=== PATIENT | male | born 1960 | race Caucasian/White ===

== ENCOUNTER 2024-07-04 13:31 | Outpatient (CLI) | payer MEDICARE, SELFPAY ==
--- NOTE | ~2024-07-04 | CT_ITS ---
CLINICAL INDICATION: Popliteal artery aneurysm. COMPARISON: None. TECHNIQUE: Computed tomography angiography (CTA) of the abdomen and bilateral lower extremities was p erformed with 150 mL Omnipaque-350 intravenous contrast timed to evaluate the abdominal aorta and low er extremity vasculature. Coronal maximum intensity projection 3D-reconstructions were created by the technologist. The dose-length product (DLP) was 1898.02 mGy-cm. Automated exposure control and itera tive reconstruction technique were employed. FINDINGS/OBSERVATIONS: No filling defect or aneurysmal dilatation within the lower thoracic or abdominal aorta. The celiac axis is patent and demonstrates conventional anatomy. The superior mesenteric artery is also patent, without significant calcified atherosclerotic disease. The inferior mesenteric artery is diminutive, but patent. No aneurysmal dilatation or calcified atherosclerotic disease is identified within the bilateral marlen c vasculature. Limited opacification of the right common femoral, profunda femoral and superficial femoral arteries secondary to bolus timing. Aneurysmal dilatation is appreciated at the level of the right popliteal artery measuring 16 x 16 x 1 9 mm (anterior to posterior x medial to lateral x cranial to caudal dimension). The arterial and veno us vasculature [id number] opacify equally, likely secondary to poor bolus timing. Limited opacification of the left common femoral, profunda femoral and superficial femoral arteries s econdary to bolus timing. Thrombosed aneurysm sac is suspected within the left popliteal artery. The opacified lumen of the left popliteal artery measures 8.3 x 9.8 mm. The unopacified aneurysm sac measures 24 x 24 mm. Evaluation of the vasculature below the knee is limited secondary to poor bolus timing. IMPRESSION: The aneurysm sac of the left popliteal artery is unopacified suggesting thrombosis. Aneurysmal dilatation at the level of the right popliteal artery measuring 19 mm in greatest dimensio n. Serial follow-up with Doppler ultrasound is suggested. Reviewed, dictated and finalized at location A. IMPRESSION: The aneurysm sac of the left popliteal artery is unopacified suggesting thrombo sis. Aneurysmal dilatation at the level of the right popliteal artery measuring 19 m m in greatest dimension. Serial follow-up with Doppler ultrasound is suggested.
[2024-07-04 14:30] LABS: Estimated Glomerular Filt Rate > 60
--- OUTSIDE RECORDS SUMMARY | 2024-07-04 14:53 | XMS_ITS | Continuity of Care Document ---
Author Organization [facility] Address [address] [place] [address] Phone Care Team Providers Care Analog Circuit Designer Name Role Phone AnetteChandu hailea Unavailable Unavailable Medications Medication Instructions Dosage Effective Dates (start - stop) Status Comments ibuprofen 600 mg tablet take 1 tablet by oral route every 6 hours as needed with food 600 MG - Active ibuprofen 600 mg tablet take 1 tablet by oral route every 6 hours as needed with food 600 MG - Active lisinopril 10 mg tablet take 1 tablet by oral route every day 10 MG - Active Procedures Procedure Date PRDNTL SCAL&ROOT PLAN 4 TEETH-QUAD PRDNTL SCAL&ROOT PLAN 4 TEETH-QUAD ORAL HYGIENE INSTRUCTIONS Chart Approval Dental Consultation ORAL HYGIENE INSTRUCTIONS Chart Approval Dental Consultation ORAL HYGIENE INSTRUCTIONS Dental Consultation SUTURE REMOVAL INTRAORAL PERIAPICAL FIRST FILM 014 Chart Approval ORAL HYGIENE INSTRUCTIONS RESIN COMPOS - 3 SURFACES POSTERIOR Chart Approval EXTRAC ERUPTED TOOTH EXPOSED ROOT ORAL HYGIENE INSTRUCTIONS Chart Approval INTRAORAL-COMPLETE SERIES INITIAL ORAL EXAM ORAL HYGIENE INSTRUCTIONS NUTRIT CNSL CONTROL DENTAL DISEASE Chart Approval EXTRAC ERUPTED TOOTH EXPOSED ROOT ORAL HYGIENE INSTRUCTIONS Chart Approval New Dental Client LIMITED ORAL EXAM, PROBLEM FOCUSED INTRAORAL PERIAPICAL FIRST FILM 013 ORAL HYGIENE INSTRUCTIONS Chart Approval New Dental Client Advance Directives Directive Yes / No Effective Date File Name No Information Encounters Encounter Description Practice Location Reason(s) For Visit Diagnoses Date Provider Providers Copied on Encounter [facility], [address] [place] [address], [id number], tel:[phone] Will [facility] Dental Dental examination Emily Jensen. [address] [place] [address], [id number]. tel:[phone] Referring Provider: Marce Brooke, [address] [place] [address], [id number]. tel:[phone] [facility], [address] [place] [address], [id number], tel:[phone] Will [facility] Dental Dental examination Adalberto Zheng. [address] [place] [address], [id number]. tel:[phone] [facility], [address] [place] [address], [id number], [place] tel:[phone] Will [facility] Dental Dental examination Adalberto Zheng. [address] [place] [address], [id number]. tel:[phone] [facility], [address] [place] [address], [id number], [place] tel:[phone] Will [facility] Dental Dental examination Adalberto Zheng. [address] [place] [address], [id number]. tel:[phone] [facility], [address] [place] [address], [id number], [place] tel:[phone] Will [facility] Dental Dental examination Adalberto Zheng. [address] [place] [address], [id number]. tel:[phone] [facility], [address] [place] [address], [id number], tel:[phone] Will [facility] Dental Dental examination Adalberto Zheng. [address] [place] [address], [id number]. tel:[phone] [facility], [address] [place] [address], [id number], tel:[phone] Will [facility] Dental Dental examination Adalberto Zheng. [address] [place] [address], [id number]. tel:[phone] [facility], [address] [place] [address], [id number], tel:[phone] Will [facility] Dental Dental examination Adalberto Zheng. [address] [place] [address], [id number]. tel:[phone] Family History Family Member Type Diagnosis Age At Onset No Information Payers Payer name Insurance type Covered constitution party ID Authoriza tiyun(s) No Information Social History Type Description Quantity Date Captured Comments Sex Male Smoking Status No Information Chief Complaint And Reason For Visit No Information Reason For Referral Reason For Referral No Information History Of Present Illness Encounter Date Complaint History Of Prese nt Illness No Information Functional Status Date Functional Assessmen t No Information Instructions Date Instruction Additional Infor mation No Information Assessments Type Assessment Date No Information Patient Care Teams Name Effective Dates (start - stop) Status Members No Information
--- OUTSIDE RECORDS SUMMARY | 2024-07-04 14:53 | XMS_ITS | Data Portability ---
Author Organization [facility], [employer] Address [address] [place] [address] Assessment Encounter Date Assessment Date Assessment LastModified by Organization Details LastModified Time 07/09/2015 07/09/2015 Pt is a 54 yo male with chronic hidradenitis who presented to PCPs office today with spontaneously draining infected area. Referred to surgery clinic for incision and drainage. I&D done in office with local anesthetic. Local wound care, Sitz baths, antibiotics given by PCP. Follow up in clinic in 2 weeks for wound check. [email or web address] Not available 07/09/2015 16:18:29 07/22/2015 07/22/2015 55 yo male here for follow-up after left groin I+D for hidradenitis. The wound is healing well and should close in the coming weeks. he is almost done with his antibiotics. Plan for PRN follow-up. [email or web address] Not available 07/22/2015 14:21:02 Plan of Treatment Reminders Order Date Submit Date Provider Last Modified By Organization Details Last Modified Time Details Appointments None record ed. Lab None record ed. Referral None record ed. Procedures None record ed. Surgeries None record ed. Imaging None record ed. Medication Orders None record ed. Patient TargetsNo targets recorded. Patient InstructionsNo instructions recorded. Reason for Referral None Reported. Results Created Date Observation Date Name Description Value Unit Range Abnormal Flag Note LastModifiedBy Organization Detail LastModifiedTime Result Notes None recorded. Problems Name Problem SNOMED Code Status Onset Date Resolution Date Notes Provider Name and Address Organization Details Recorded Time Abscess of groin 65406350 Active Ann groves [facility] 07/22/2015 12:54:59 Problem Notes None recorded. Procedures Surgical History Date Name Laterality Status Provider Name and Address Organization Details Recorded Time 6 I+D abscess completed Hamida Vega [facility] 07/09/2015 16:18:30 Imaging Results None recorded. Procedure Notes None recorded. Medical Equipment None Reported. Allergies No known drug allergies Medications Name Sig Start Date Stop Date Status Note LastModified by Organization Details LastModified Time atorvastatin 20 mg tablet active Not Available Not Available Not Available lisinopril 30 mg tablet active Not Available Not Available Not Available allopurinol 300 mg tablet active Not Available Not Available Not Available metoprolol succinate ER 25 mg tablet,extended release 24 hr active Not Available Not Availabl e Not Available amoxicillin 875 mg-potassium clavulanate 125 mg tablet active Not Available Not Available Not Available fenofibrate nanocrystallized 48 mg tablet active Not Available Not Available Not Available Vitals Date Recorded Body mass index (BMI) Body weight Heart rate Body height Systolic blood pressure Diastolic blood pressure Provider Name and Address Organization Details Last Updated DateTime 6 41.8 kg/m2 644188. 93858 g 90 /min 175.26 cm 150 mm[Hg] 92 mm[Hg] [facility] 6 16:16:39 Date Recorded Body height Body mass index (BMI) Heart rate Body weight Systolic blood pressure Diastolic blood pressure Provider Name and Address Organization Details Last Updated DateTime 6 175.26 cm 41 kg/m2 106 /min 801753. 185878 g 146 mm[Hg] 102 mm[Hg] [facility] 6 12:54:59 Social History Question Answer Notes LastModified by Organizat ion Details LastModified Time Tobacco Smoking Status Never Smoker Not Available [facility] 01/18/2020 03:13:29 How Much Tobacco Do You Smoke? No [id number] Information not available 01/18/2020 Sex: Unknown Functional Status None recorded. Mental Status None recorded. Family History Nothing Reported. Medical History Condition Response Coronary Artery Disease N Other N Gout N Thyroid Disease N Prostate Disease N Bleeding Disorders N Blood disorders N Bowl Obstruction N Urinary Incontinence N Depression N COPD N Anorexia N Anemia N Colon Polyps N Deep Vein Thrombosis N Kidney disease N Anxiety Disorder N Diabetes N Arthritis N Seizure N History of Heart Attack N Pain N Cancer N Stroke N Diverticulitis N Asthma N Morbid Obesity N HIV/AIDS N Fecal Incontinence N Sleep Apnea N GERD/Reflux N High Cholesterol N Hepatitis N Liver Disease N Pulmonay disease N Heart Disease N Pulmonary Embolism N PCOS N Hypertension Y Past Encounters Encounter ID Performer Location Encounter Start Date Encounter Closed Date Diagnosis/Indication Diagnosis SNOMED-CT Code Diagnosis ICD10 Code Diagnosis Note [id number] Shara Crespo [facility] [address] [place] [address] 07/09/2015 15:23:37 07/14/2015 10:55:56 [id number] Brittany [facility] [address] [facility] [address] [place] [address] 07/22/2015 12:41:38 07/25/2015 12:54:53 Health Concerns Section Related Observation LastModified by Organization Detai ls LastModified Time None Recorded Concern Status LastModified by Organization Details LastModified Time None Recorded Advance Directives Directive None Recorded Payers Encounter Date Sequence Insurance Name Policy Number Policy Chavez Covered Member ID Chavez Member ID Guarantor Name 07/22/2015 1 [place] Gurwinder Hoff [id number] Gurwinder Hoff Notes Date Note Type Note Provider Name and Address Organization Details Recorded Time 07/09/2015 text/html Pt is a 54 yo ma le who was sent to clinic for evaluation of groin tenderness and purulent drainage. Per patient he has had this problem in the past in the same area and diagnosed with hidradenitis in his axilla and groin. He first noticed that this area got worse about 2-3 days ago and got worse today/yesterday. First noticed spontaneous drainage last night. No fever, chills, SOB, CP. Shara Crespo [facility] 07/16/2015 18:16:10 07/22/2015 text/html Here for follow- up after I+D of the left groin hidradenitis. He has minimal pain now and there is not much drainage. He is feeling well otherwise. Jc Morejon MD [address], [place], [address], [facility] 07/22/2015 14:21:15
--- OUTSIDE RECORDS SUMMARY | 2024-07-04 14:53 | XMS_ITS | Clinical Summary ---
Author Organization Hamida lewis Address [address] [place] [address] Care Team Providers Care Entry Driver Operator Name Role Phone Unavailable Primary Care Provider Unavailabl e Allergies No known active allergies Medications lisinopril (PRINIVIL) 10 mg tablet Take 10 mg by mouth daily. Active allopurinoL (ZYLOPRIM) 300 mg tablet Take 300 mg by mouth daily. Active fenofibrate micronized (LOFIBRA) 134 mg Capsule Take 134 mg by mouth daily. Active cetirizine (ZyrTEC) 10 mg tabletIndication s:Acute frontal sinusitis, recurrence not specified Take 1 Tablet (10 mg) by mouth daily. 30 Tablet 1 12/21/2018 Active Active Problems Problem Noted Date Diagnosed Date Tobacco use Family History Relation Name Status Comments Father Mother Social History Tobacco Use Types Packs/Day Years Used Date Smoking Tobacco: Every Day Cigarettes Smokeless Tobacco: Never Tobacco Cessation:Ready to Q uit: No; Counseling Given: Yes Alcohol Use Standard Drinks/Week Comments Yes 0 (1 standard drink = 0.6 oz pur e alcohol) Sex and Gender Information Value Date Recorded Sex Assigned at Not on file Legal Sex Male 9:45 AM CDT Gender Identity Not on file Sexual Orientation Not on file Last Filed Vital Signs Vital Sign Reading Time Taken Comments Blood Pressure 128/84 12/21/2018 9:58 AM CDT Pulse 91 12/21/2018 9:58 AM CDT Temperature 36.2 C (97.2 F) 12/21/2018 9:58 AM CDT Respiratory Rate - - Oxygen Saturation 96% 12/21/2018 9:58 AM CDT Inhaled Oxygen Concentration - - Weight 132.9 kg (293 lb) 12/21/2018 9:58 AM CDT Height 198.1 cm (6' 6 ) 12/21/2018 9:58 AM CDT Body Mass Index 33.86 12/21/2018 9:58 AM CDT Plan of Treatment Health Maintenance Due Date Last Done Comments Pre-Diabetes and Diabetes Screening 1960 DTAP/TDAP/TD VACCINES (1 - Tdap) 1981 COLORECTAL SCREENING 07/16/2007 Colorectal Cancer Screening 07/16/2007 FIT-DNA Q 3 years 07/16/2007 FIT/FOBT Q 1 year 07/16/2007 Flex Sig/CT Colonography Q 5 years 07/16/2007 ZOSTER VACCINE (1 of 2) 2012 INFLUENZA VACCINE (#1) 2023 12/21/2018, 2018 RSV VACCINE (60+ or ) (1 - 1-dose 75+ series) 2037 Insurance MCR
--- OUTSIDE RECORDS SUMMARY | 2024-07-04 14:53 | XMS_ITS | CONTINUITY OF CARE DOCUMENT ---
Author Name kirit beth Address Unknown Organization [facility] Address [address] [place] [address] Phone [phone] Care Team Providers Care Fire Engine Operator Name Role Phone Mello Garcia MD Unavailable SERVANDO GUAMAN MD Unavailable [phone] SERVANDO GUAMAN MD Unavailable [phone] INSURANCE PROVIDERS Payer name Policy type / Coverage type [place] red libertarian ID [id number] CHRONIC COMPLETE ASSURE (PPO C-SNP) Medicare [id number]
--- OUTSIDE RECORDS SUMMARY | 2024-07-04 14:54 | XMS_ITS | Clinical Summary ---
Author Organization [facility] Address [address] [place] [address] Care Team Providers Care Fat Purification Worker Name Role Phone Unavailable Primary Care Provider Unavailabl e Source Comments [facility],non-owned Affiliates and Associated Physician Practices is amultiple site organization consisting of ambulatory clinics and hospital sitesin [place], [place], [place] and [place]. This disclosure is being madepursuant to the Care Everywhere program and may not contain all informatio navailable regarding this patient. Last updated 17.[facility] [employer] Allergies No known active allergies Medications Be aware that medications may not be up to date on this document. Always verify current medications with the patient. No known medications Active Problems No known active problems Social History Tobacco Use Types Packs/Day Years Used Date Smoking Tobacco: Every Day Cigarettes Smokeless Tobacco: Never Tobacco Cessation:Ready to Q uit: Yes; Counseling Given: Yes Alcohol Use Standard Drinks/Week Comments Yes 0 (1 standard drink = 0.6 oz pur e alcohol) Sex and Gender Information Value Date Recorded Sex Assigned at Not on file Gender Identity Not on file Sexual Orientation Not on file Last Filed Vital Signs Vital Sign Reading Time Taken Comments Blood Pressure - - Pulse - - Temperature - - Respiratory Rate - - Oxygen Saturation - - Inhaled Oxygen Concentration - - Weight 126.1 kg (278 lb) 11/14/2020 1:25 PM CDT Height 198.1 cm (6' 6 ) 11/14/2020 1:25 PM CDT Body Mass Index 32.13 11/14/2020 1:25 PM CDT Plan of Treatment Health Maintenance Due Date Last Done Comments KENDRICK (AGES 45-75) - COL ON CA SCREENING 1960 COLON MONITORING 1962 COLONOSCOPY - COLON CA SCREENING 1962 CT COLONOGRAPHY - COLON CA SCREENING 1962 Colorectal Cancer Screening 1962 FIT - COLON CA SCREENING 1962 FLEX SIG - COLON CA SCREENING 1962 LIPID TESTING 1962 HIV SCREENING 1977 HEPATITIS C SCREENING 07/10/1980 DTAP/TDAP/TD VACCINES (1 - Tdap) 1981 PNEUMOCOCCAL VACCINE (1 of 2 - PCV) 1981 PNEUMOCOCCAL VACCINE 50+ (1 of 1 - PCV) 2012 ZOSTER VACCINE (1 of 2) 2012 SCREENING FOR DIABETES 11/14/2020 COVID-19 VACCINE (1 - 2023-2 5 season) 2023 INFLUENZA VACCINE (#1) 2023 DEPRESSION SCREENING 04/04/2024 MEDICARE AWV CALENDAR YEAR 2024 Respiratory Syncytial Virus (RSV) Vaccine Pt: or over 60 yrs (1 - 1-dose 75+ series) 2037 HEPATITIS B VACCINE Aged Out No longe r eligible based on patient's age to complete this topic HIB VACCINE Aged Out No longer eligi ble based on patient's age to complete this topic HPV VACCINE Aged Out No longer eligi ble based on patient's age to complete this topic MENINGOCOCCAL (Group B) VACC INE SHARED DECISION-MAKING Aged Out No longer eligibl e based on patient's age to complete this topic MENINGOCOCCAL GROUPS A/C/Y/W VACCINE Aged Out No longer eligible b ased on patient's age to complete this topic Goals Goal Patient Goal Type Associated Problems Recent Progress Patient-Stated? Author Mobility General No Gabriella Barreto, RN Note: Expected end date: 04/03/2021 The goal is to maintain or improve your mobility at the optimum level for you. Interventions: RACHID HOFF Personal/Family 1960 [address] [place] [address]
--- OUTSIDE RECORDS SUMMARY | 2024-07-04 14:54 | XMS_ITS | Clinical Summary ---
Author Organization [facility] Address [address] [place] [address] Phone Care Team Providers Care Pearl Stringer Name Role Phone Desire Sainz MD Primary Care Provider + Medications allopurinol (ZYLOPRIM) 300 MG Tablet daily. Active fenofibrate (TRICOR) 48 MG Tablet daily. Active lisinopril (PRINIVIL, ZESTRIL) 10 MG Tablet Take 10 mg by mouth daily. Active metoprolol Succinate (TOPROL-XL) 25 MG TABLET SR 24 HR daily. Active aspirin 81 MG Chewable Tablet Take 1 Tablet by mouth daily. 04/06/2024 Active acetaminophen (TYLENOL) 325 MG Tablet Take 2 Tablets by mouth every 4 hours as needed for Mild or more severe pain. 04/06/2024 Active atorvastatin (LIPITOR) 40 MG Tablet Take 1 Tablet by mouth nightly. 90 Tablet 04/06/2024 Active Active Problems Problem Noted Date Diagnosed Date Acute brainstem (right pontine) stroke 4 Assessment & Plan (04/06/2024 7:12 AM INFECTIOUS WASTE TECHNICIAN): DAPT & statin IPR denied by insurance Home health pending Assessment & Plan (04/05/2024 10:55 AM INFECTIOUS WASTE TECHNICIAN): DAPT & statin IPR denied by insurance Home health pending Assessment & Plan (04/04/2024 12:35 PM INFECTIOUS WASTE TECHNICIAN): DAPT & statin IPR denied by insurance Assessment & Plan (04/03/2024 2:04 PM INFECTIOUS WASTE TECHNICIAN): DAPT & statin IPR pending Facial droop due to acute stroke 03/27/2024 Hemiparesis of left nondominant side 03/27/2024 Dysarthria due to acute stroke 03/27/2024 Primary hypertension 03/27/2024 Assessment & Plan (04/06/2024 7:12 AM INFECTIOUS WASTE TECHNICIAN): Permissive BP for now Assessment & Plan (04/05/2024 8:17 AM INFECTIOUS WASTE TECHNICIAN): Permissive BP for now Assessment & Plan (04/04/2024 12:35 PM INFECTIOUS WASTE TECHNICIAN): Permissive BP for now Assessment & Plan (04/03/2024 2:04 PM INFECTIOUS WASTE TECHNICIAN): Permissive BP for now Hyperlipidemia LDL goal <70 03/27/2024 Amphetamine use disorder, mild 03/27/2024 Assessment & Plan (04/06/2024 7:12 AM INFECTIOUS WASTE TECHNICIAN): Monitoring for withdrawal Assessment & Plan (04/05/2024 8:17 AM INFECTIOUS WASTE TECHNICIAN): Monitoring for withdrawal Assessment & Plan (04/04/2024 12:35 PM INFECTIOUS WASTE TECHNICIAN): Monitoring for withdrawal Assessment & Plan (04/03/2024 2:04 PM INFECTIOUS WASTE TECHNICIAN): Monitoring for withdrawal Encounters Date Type Department Care Team Description 05/15/2024 2:00 PM INFECTIOUS WASTE TECHNICIAN Telemedicine [facility] - Neurology - [place] Dylan Severino [address] [place] [address] Desire Sainz MD Kappes, Puja Francois, [facility] Other sequelae of cerebral infarction, left sided weakness (Primary Dx); Hyperlipidemia LDL goal <70; Hypertension goal BP (blood pressure) < 130/80; Smoker; Fatigue as sequela of cerebrovascular accident (CVA); Obesity (BMI 30-39.9) Discharge Disposition: Discharged to home or Selfcare 05/15/2024 Travel 04/15/2024 Travel 04/12/2024 8:00 AM INFECTIOUS WASTE TECHNICIAN Home Care Visit [address] [address] Maryellen Parekh, PT HOME HEALTH NON-ADMIT 04/11/2024 Home Care Visit [address] [address] Maryellen Parekh, PT TELEPHONE ENCOUNTER 04/10/2024 Home Care Visit [address] [address] Margaret Martinez, AIR DEFENSE CONTROL OFFICER-SPEECH LANGUAGE PATHOLOGIST TELEPHONE ENCOUNTER 04/09/2024 Telephone [facility] [place] - Neurology - [facility] [address] [place] [address] Puja Patel, PAC Care Management 04/09/2024 Home Care Visit [address] [address] Demetria Alan, RN TELEPHONE ENCOUNTER 04/06/2024 Home Care Visit [address] [address] Demetria Alan, RN TELEPHONE ENCOUNTER 03/27/2024 4:27 PM INFECTIOUS WASTE TECHNICIAN - 04/06/2024 11:02 AM INFECTIOUS WASTE TECHNICIAN [facility] [address] [place] [address] Jacques Diaz MD Upp, MD Rajeev Talkedward, MD Karis Goldsmith, Augie Ramirez MD Acute brainstem stroke (HCC) Discharge Disposition: Home Health Care Svc from Last 3 Months Social History Tobacco Use Types Packs/Day Years Used Date Smoking Tobacco: Former Cigarettes Smokeless Tobacco: Never Alcohol Use Standard Drinks/Week Comments Yes 0 (1 standard drink = 0.6 oz pur e alcohol) social AHC Utilities Answer Date Recorded In the past 12 months has [employer], [employer], oil, or water [employer] threatened to shut off services in your home? No 03/27/2024 Hunger Vital Sign Answer Date Recorded Within the past 12 months, y ou worried that your food would run out before you got the money to buy more. Never true 03/27/20 24 Within the past 12 months, t he food you bought just didn't last and you didn't have money to get more. Never true 03/27/2024 PRAPARE - Transportation Answer Date Re corded In the past 12 months, has l ack of transportation kept you from medical appointments or from getting medications? Yes 03/05 In the past 12 months, has l ack of transportation kept you from meetings, work, or from getting things needed for daily living? Yes 03/27/2024 Housing Stability Vital Sign Answer Burt e Recorded In the last 12 months, was t here a time when you were not able to pay the mortgage or rent on time? No 03/27/2024 In the past 12 months, how m any times have you moved where you were living? 0 03/27/2024 At any time in the past 12 m [facility], were you homeless or living in a snf (including now)? No 03/27/2024 Sex and Gender Information Value Date Recorded Sex Assigned at Not on file Legal Sex Male 1:20 PM INFECTIOUS WASTE TECHNICIAN Gender Identity Not on file Sexual Orientation Not on file Last Filed Vital Signs Vital Sign Reading Time Taken Comments Blood Pressure 158/87 04/06/2024 4:32 AM INFECTIOUS WASTE TECHNICIAN Pulse 81 04/06/2024 4:32 AM INFECTIOUS WASTE TECHNICIAN Temperature 36.3 C (97.3 F) 04/06/2024 4:32 AM INFECTIOUS WASTE TECHNICIAN Respiratory Rate 18 04/06/2024 4:32 AM INFECTIOUS WASTE TECHNICIAN Oxygen Saturation 93% 04/06/2024 4:32 AM INFECTIOUS WASTE TECHNICIAN Inhaled Oxygen Concentration - - Weight 123.8 kg (273 lb) 05/15/2024 2:13 PM INFECTIOUS WASTE TECHNICIAN Height 195.6 cm (6' 5 ) 03/28/2024 2:32 PM INFECTIOUS WASTE TECHNICIAN Body Mass Index 32.37 03/28/2024 2:32 PM INFECTIOUS WASTE TECHNICIAN Plan of Treatment Health Maintenance Due Date Last Done Comments TdaP Immunization 1962 Colonoscopy 07/16/2007 Colorectal Cancer Screening 07/16/2007 Cologuard 2012 Immunochemical Fecal Occult Blood 2012 Pneumococcal Immunization (5 0+ years) (1 of 1 - PCV) 2012 Zoster Immunization (1 of 2) 2012 PSA Discussion 2017 Influenza Immunization (#1) 2023 SARS-COV-2 Immunization (1 - season) 2023 Respiratory Syncytial Virus (RSV) Immunization (Adult) (1 - 1-dose 75+ series) 2037 Hepatitis C Virus (HCV) Screening Completed 016 Hepatitis B Immunization Aged Out No longer eligible based on patient's age to complete this topic Meningococcal Immunization (ACWY) Aged Out No longer eligible based on patient's age to complete this topic Rotavirus Immunization Aged Out No lo nger eligible based on patient's age to complete this topic Insurance [address] [place] [address] [facility] MEDICARE C [facility] Advance Directives * Full Code (Latest Code Status on File) Date Activated Date Inactivated Comments 03/27/2024 6:42 PM CPR-Full Yvonne tment: FULL ARREST: Attempt Resuscitation/CPR wit intubation and mechanical ventilation. PRE-ARREST: Use entire range of life support measures to stabilize the patient. Care Teams Pearl Stringer Relationship Specialty [place] [address] [place] [address] PCP - General Family Medicine 04/05/24
--- OUTSIDE RECORDS SUMMARY | 2024-07-04 14:54 | XMS_ITS | Data Portability ---
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 Presenting with bilateral lower extremity pain at rest. Symptoms can be due to venous and arterial in origin given medical history increasing the risk for arterial disease (smoker, hypertension) and lower extremity edema despite the use of compression therapy over the past 2 years. My recommendation is lower extremity arterial and venous ultrasound for further evaluation. I will discuss with him the results of his ultrasounds at his follow up visit. I spent a total of 45 minutes with the patient. The time was spent reviewing the chart ,discussing with patient and/or family and forming a treatment plan. Not available 05/28/2024 23:34:46 06/06/2024 06/06/2024 63 y/o male with history of dyslipidemia, hypertension, and CVA with lower extremity pain (left calf to the foot and right foot) presenting for lower extremity arterial and venous ultrasounds. 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 Monophasic waveforms were seen to the left lower extremity from the popliteal artery distally to the dorsalis pedis artery. Left popliteal aneurysm measured 2.34 cm. Right anterior tibial/posterior tibial and dorsalis pedis arteries were monophasic. Venous reflux ultrasound demonstrated venous reflux to the right saphenofemoral junction and GSV. I suspect his pain is due to arterial disease and popliteal aneurysm. A CTA has been ordered for him to complete for further evaluation of the left popliteal aneurysm. My recommendation is lower extremity angiogram with possible intervention after he has completed the CTA. The risks, benefits, and alternatives were discussed with the patient. The patient states they understand and wish to proceed. Treatment planning is underway. I spent a total of 45 minutes with the patient. The time was spent reviewing the chart ,discussing with patient and/or family and forming a treatment plan. Not available 06/10/2024 22:52:17 Plan of Treatment Reminders Order Date Submit Date Provider Last Modified By Organization Details Last Modified Time Details Appointments AIF 2024 09:00A M Dr. Snow Not available Not available Not available Lab CMP, serum or plasma 2024 025 Not available 07/04/2024 14:19:37 CBC 2024 025 [email or web address] Not available 07/04/2024 14:19:37 HbA1c (hemoglo bin A1c), blood 2024 025 [email or web address] Not available 07/04/2024 14:19:37 PT/INR 2024 025 [email or web address] Not available 07/04/2024 14:19:37 Referral None recorded . Procedures None recorded . Surgeries None recorded . Imaging CT, angiogra m, abdomen + pelvis + lower extremit y, w/wo contrast - further eval for left poplitea l aneurysm . ultrasou nd displaye d 2.4 cmPlease mail copy of CD images to clinic 2024 025 [facility] (Radiology), [address] [place], [address], 06/13/2024 04:02:56 Medication Orders None recorded . Patient TargetsNo targets recorded. Patient InstructionsNo instructions recorded. Reason for Referral None Reported. Results Created Date Observation Date Name Description Value Unit Range Abnormal Flag Note LastModifiedBy Organization Detail LastModifiedTime 06/07/19 25 US, odessale x, venou s, lower extre mity, limit ed No observ ation record ed. [email or web address] Not Available 2024 08:53:03 06/07/19 25 06/06/2024 US, doppl er, arter ial No observ ation record ed. [email or web address] Not Available 2024 08:56:44 Result Notes None recorded. Problems Name Problem SNOMED Code Status Onset Date Resolution Date Notes Provider Name and Address Organization Details Recorded Time Peripheral vascular disease 843670503 Active 2024 Not Available [facility] 11:01:08 Complicati on due to diabetes mellitus 82682967 Active 2024 Alice groves [employer] - [facility] and 15:01:15 Bilateral lower limb pain at rest due to atheroscle rosis 3911101408412 9103 Active 2024 Alice groves [place] - [facility] and 20:30:15 Edema of lower extremity 290249277 Active 2024 Alice gro[place], [place] - [facility] and 20:30:22 Problem Notes None recorded. Procedures Surgical History Date Name Laterality Status Provider Name and Address Organization Details Recorded Time 06/07/19 25 OALEArterialUS1 completed Alice MADRIGAL - [facility] and 06/07/2024 20:30:02 06/07/19 25 OALEVenousUSreflux completed Alice [facility] and 06/07/2024 20:30:03 Imaging Results Imaging Date Name Status LastModified by Organiz ation Details LastModified Time 06/06/2024 US, duplex, venous, lower extremity, limited completed Information not available 06/07/2024 08:53:03 06/06/2024 US, doppler, arterial completed Information not available 06/07/2024 08:56:44 Procedure Notes None recorded. Medical Equipment None Reported. Allergies No known drug allergies Medications Name Sig Start Date Stop Date Status Note LastModified by Organization Details LastModified Time atorvastatin 40 mg tablet TAKE 1 TABLET BY MOUTH EVERY NIGHT active Not Available Not Available No t Available Zyrtec 10 mg tablet Take 1 tablet every day by oral route. active Not Available Not Available No t Available fenofibrate micronized 134 mg capsule Take 1 capsule every day by oral route. active Not Available Not Available No t Available lisinopril 10 mg tablet Take 1 tablet every day by oral route. active Not Available Not Available No t Available allopurinol 300 mg tablet Take 1 tablet every day by oral route. active Not Available Not Available No t Available aspirin 81 mg capsule Take 1 capsule every day by oral route. active Not Available Not Available No t Available Vitals Date Recorded Body height Body mass index (BMI) Body weight Heart rate Systolic blood pressure Diastolic blood pressure Provider Name and Address Organization Details Last Updated DateTime 195.58 cm 32.6 kg/m2 889022. 9 g 91 /min 162 mm[Hg] 111 mm[Hg] solomon harley [facility] and 13:12:52 Social History Question Answer Notes LastModified by Organizat ion Details LastModified Time Tobacco Smoking Status Current Some Day Smoker solomon groves, [facility] and 05/28/2024 12:56:44 What Is Your Level Of Alcohol Consumption? Occasional [email or web address] Information not available 05/28/2024 What Is Your Level Of Caffeine Consumption? Moderate Information not available 07/02/2024 Which Illicit Or Recreational Drugs Have You Used? Marijuana Information not available 07/02/2024 What Is Your Occupation? Disabled [email or web address] Information not available 05/28/2024 What Was The Date Of Your Most Recent Tobacco Screening? 05/28/2024 [email or web address] Information not available 05/28/2024 How Much Tobacco Do You Smoke? 0.25 PPD Information not available 05/28/2024 Do You Use Any Illicit Or Recreational Drugs? Yes Information not available 07/02/2024 How Many Years Have You Smoked Tobacco? 25 [email or web address] Information not available 05/28/2024 Do You Or Have You Ever Used Any Other Forms Of Tobacco Or Nicotine? No Information not available 07/02/2024 Sex: Unknown Functional Status None recorded. Mental Status None recorded. Family History Relationship Description Onset Age of this Age Resolved Age Notes LastModified by Organization Details LastModified Time Mother Diabetes mellitus pt. added direct ly (05/26) [email or web address] Not available 05/26/2024 18:53:02 Father Diabetes mellitus pt. added direct ly (05/26) [email or web address] Not available 05/26/2024 18:53:02 Medical History Condition Response Hyperlipidemia Y Stroke Y Hypertension Y Past Encounters Encounter ID Performer Location Encounter Start Date Encounter Closed Date Diagnosis/Indication Diagnosis SNOMED-CT Code Diagnosis ICD10 Code Diagnosis Note [id number] KENNEY DAILY, [employer] [place] [address] [address] [facility], [facility] [address] [address] 05/28/2024 12:17:56 05/29/2024 18:19:41 Edema of lower extremity 810728946 R60.0 Bilateral lower limb pain at rest due to atherosclerosis 9022375722 4444056 I70.223 [id number] KENNEY DAILY, [employer] [place] [address] [facility], [facility] [address] [address] 06/06/2024 12:21:30 06/11/2024 17:02:21 Aneurysm of left popliteal artery 1908880630 4378468 I72.4 Bilateral lower limb pain at rest due to atherosclerosis 8554511726 9055334 I70.223 Pre-surgery testing 1104 [address]150 Z01.812 Edema of l ower extremity 633747533 R60.0 34[address] Alice Veronica [place] [address] [address] [address] [facility] ,[address] [address] 06/06/2024 12:21:55 06/07/2024 21:00:37 Bilateral lower limb pain at rest due to atherosclerosis 2882840468 7916315 I70.223 Edema of l ower extremity 152779495 R60.0 Health Concerns Section Related Observation LastModified by Organization Detai ls LastModified Time None Recorded Concern Status LastModified by Organization Details LastModified Time None Recorded Advance Directives Directive None Recorded Payers Encounter Date Sequence Insurance Name Policy Number Policy Chavez Covered Member ID Chavez Member ID Guarantor Name 05/28/2024 1 [facility] (MEDICARE REPLACEMENT/A DVANTAGE - PPO) [id number] Gurwinder Mccoylo [id number] Gurwinder Luis Eduardo 06/06/2024 1 [facility] (MEDICARE REPLACEMENT/A DVANTAGE - PPO) [id number] Gurwinder Mccoylo [id number] Gurwinder Mccoylo 06/06/2024 1 [facility] (MEDICARE REPLACEMENT/A DVANTAGE - PPO) [id number] Gurwinder Luis Eduardo [id number] Gurwinder Luis Eduardo Notes Date Note Type Note Provider Name and Address Organization Details Recorded Time 5 text/html OA Arterial Occlusive Disease: Lower ExtremityReported bypatient.Location:[facility] (Right worse than left) Quality:cramping; burning; aching; weakness Severity:moderate Onset/Timing:with exercise begins at 1 block; wakes from sleep Context:tobacco use; current smoker Alleviating Factors:rest Aggravating Factors:walking; standing Associated Symptoms:weakness;numbness /tinglingVaricose Vein or Venous insufficiencyReported bypatient.Location:[facility] (right worse than left) Quality:aching;burning; legs do not swell equally (right leg swells more) Associated Symptoms:numbness;tingling ;swelling;itching;heavines s;throbbing;character: cramping Severity:moderate Onset:2 years Context:compression stockings (for how long?) He has worn knee high compressions for 2 years. Alleviating Factors:elevation; rest Aggravating Factors:prolonged standing sleepsleep disturbances: insomnia: difficulty falling asleep: because of pain KENNEY HAYES, SABINO [address], [address], [facility] and 05/28/2024 23:36:03 5 text/html He is presenting for lower extremity arterial and venous ultrasounds. He complains of lower extremity pain on the left from the calf to the foot and to the right foot. He continues to have lower extremity edema. KENNEY HAYES, SABINO [address] [facility], [address], [address], [facility] and 06/10/2024 22:52:54
== END 2024-07-04 13:32 | disposition home or self-care (01) ==
DX: I72.4 Aneurysm of artery of lower extremity (principal)
CPT/HCPCS: 75635; Q9967